=== PATIENT | male | born 1945 | race Caucasian/White ===

== ENCOUNTER → 2019-02-16 | Outpatient (CLI) | payer MEDICARE, OTHER ==
[~2019-02-16] MED LIST: ASPI-496 PO; ATOR10TA9 PO; CA C1TAB28 PO; CHOL5000 PO; ENAL5TAB PO; FISH OIL OMEGA1 EACH PO; MAGN300C PO; METF10002 PO; METO25TA35 PO; NITR0.4T28 SL; OMEP-110 PO; ROSU10TA2 PO; UBID100C24 PO
== END | disposition home or self-care (01) ==
LOC: CVU 08:59
PROVIDERS: ATTEND Physician Assistant Medical
DX: I25.10 Atherosclerotic heart disease of native coronary artery without angina pectoris (principal); I10 Essential (primary) hypertension; E78.5 Hyperlipidemia, unspecified; E11.9 Type 2 diabetes mellitus without complications
CPT/HCPCS: 93306

== ENCOUNTER 2019-08-20 15:08 | Emergency (ER) | payer MEDICARE, OTHER ==
[~2019-08-20] VITALS: Ht 177.8 cm; Wt 112.8 kg
[2019-08-20 15:50] VITALS: BP 141/93
== END 2019-08-20 16:49 | disposition home or self-care (01) ==
LOC: ED 16:45
DX: S01.112D Laceration without foreign body of left eyelid and periocular area, subsequent encounter (principal); X58.XXXD Exposure to other specified factors, subsequent encounter
CPT/HCPCS: 99281

== ENCOUNTER 2020-05-05 06:42 | Outpatient (CLI) | payer MEDICARE, OTHER ==
[2020-05-05] MEDS ORDERED: REGADENOSON 0.4 MG/5 ML SYRINGE ONE (14:48)
== END 2020-05-05 23:59 | disposition home or self-care (01) ==
LOC: CFH 06:42
PROVIDERS: ATTEND Internal Medicine Cardiovascular Disease
DX: I25.10 Atherosclerotic heart disease of native coronary artery without angina pectoris (principal); I77.810 Thoracic aortic ectasia
CPT/HCPCS: 78452; 93017; 93306; A9502; J2785

== ENCOUNTER → 2021-05-15 | Outpatient (CLI) | payer MEDICARE, OTHER ==
[~2021-05-15] MED LIST changes: -ENAL5TAB PO; +ENAL5TAB10 PO
== END | disposition home or self-care (01) ==
LOC: CFH 06:50
PROVIDERS: ATTEND Internal Medicine Cardiovascular Disease
DX: I10 Essential (primary) hypertension (principal); E78.5 Hyperlipidemia, unspecified; I77.810 Thoracic aortic ectasia
CPT/HCPCS: 93306

== ENCOUNTER 2021-06-21 12:03 | Outpatient (CLI) | payer MEDICARE, OTHER ==
[~2021-06-21 12:03] MED LIST changes: +REGADENOSON 0.4 MG/5 ML SYRINGE ONE
== END 2021-06-21 23:59 | disposition home or self-care (01) ==
LOC: CFH 12:03
PROVIDERS: ATTEND Internal Medicine Cardiovascular Disease
DX: I25.10 Atherosclerotic heart disease of native coronary artery without angina pectoris (principal)
CPT/HCPCS: 78452; 93017; A9502; J2785